=== PATIENT | female | born 1980 | race Caucasian/White ===

== ENCOUNTER 2016-09-26 14:31 | Emergency (ER) | payer BC | END 2016-09-26 15:34 | disposition home or self-care (01) | LOC: ER 14:31 | DX: S93.611A Sprain of tarsal ligament of right foot, initial encounter (principal); X58.XXXA Exposure to other specified factors, initial encounter; Y93.02 Activity, running; Y92.009 Unspecified place in unspecified non-institutional (private) residence as the place of occurrence of the external cause ==